=== PATIENT | male | born 1950 | race Caucasian/White ===

== ENCOUNTER 2016-07-15 08:19 | Outpatient (RCR) | payer MEDICARE, OTHER ==
--- OUTSIDE RECORDS SUMMARY | 2016-05-16 08:14 | XMS REPORT | Continuity of Care Document ---
Author Author [facility] Organization [facility] Address Unknown Phone Unavailable Care Team Providers Care Sales Representative [facility] Name Role Phone Unverified, Unverified PCP Unavailable Source Comments Some departments are not documenting in the electronic medical record. If you do not see the information that you expected, contact Release of Information in the Health Information Management department at [phone] for further assistance in locating additional records.[facility] Active Allergies and Adverse Reactions No Known Allergies Current Medications Prescription Sig. Disp. Refills Start End Date Status Date CALCIUM CARBONATE/VITAMIN Take 1 Cap by mouth Active D3 (CALCIUM + D PO) daily. vitamins, multiple cap Take 1 Cap by mouth Active daily. cyanocobalamin (VITAMIN Inject 1,000 mcg to Active B-12, RUBRAMIN) 1,000 area(s) as directed mcg/mL injection daily. MAGNESIUM CHLORIDE (MAG Take 99 mg by mouth Active 64 PO) daily. mexiletine (MEXITIL) 200 Take 200 mg by mouth Active mg capsule twice daily. testosterone(+) Apply 2.5 g to affected Active (ANDROGEL) 1 % (50 mg/5 area daily. g) transdermal gel Active Problems Problem Noted Date Testosterone deficiency 04/15/2013 Dizziness 10/12/2012 PVC's (premature ventricular contractions) 10/12/2012 Overview: 10/18/2012 - 24 Hour Holter: Sinus rhythm. Avg HR 64 bpm in spite of active day. Max HR 123bpm. No prologed pauses or significant bradycardia. Frequent monomorphic PVCs. ventricular bigeminy. PVC burden 13.3%, No symptoms reported. ETOH abuse 10/12/2012 Overview: Moderate Celiac sprue 10/12/2012 Chest pain 10/12/2012 Overview: 09/24/2012 - Stress Test: Fair exercise tolerance a total of 7 minutes, on standard Jose protocol, achieving 90% of maximum expected HR. Baseline SR with frequent PVCs and ventricular bigeminy, improved at increased HR. At the peak stress level, the patient did not have any PVCs. Started having PVCs during recovery. Back to ventricular bigeminy at the end of the stress test. Hypokinesia involving the anterior wall, anterior septum at the peak stress level compared to the resting images, suggestive of ischemia. ([facility]). 09/24/2012 - Cardiac Catheterization: 40 - 50% mid LAD stenosis, otherwise, nonobstructive disease in the coronary system. Normal LVEDP. The patient was borderline hypotensive. ([facility]) Bradycardia 10/12/2012 Overview: 09/23/2012 - ECHO: LVEF ~ 60%. LA size=4.0 cm. Normal LV size and systolic function. Mild MR. Mild TR. PAP 35 mmHg. ([facility]). Social History Tobacco Use Types Packs/Day Years Used Date Never Assessed Last Filed Vital Signs Vital Sign Reading Time Taken Blood Pressure 138/64 04/15/2013 2:26 PM LATCHER Pulse 53 04/15/2013 2:26 PM LATCHER Temperature - - Respiratory Rate - - Height 1.88 m (6' 2") 04/15/2013 2:26 PM LATCHER Weight 100.245 kg (221 lb) 04/15/2013 2:26 PM LATCHER Body Mass Index 28.36 04/15/2013 2:26 PM LATCHER Oxygen Saturation - - Plan of Care Health Maintenance Due Date Last Done Comments Physical (Comprehensive) 1958 Exam Pertussis Vaccine 1962 Tetanus Vaccine 02/26/1968 Colorectal Cancer 2001 Screening Shingles Vaccine 2011 Influenza Vaccine 01/07/2016 Results from Last 3 Months Not on file
[~2016-07-15 08:19] MED LIST: ASP81TEC PO; ASPI325T32 PO; ATOR10TA66 PO; CALC-656 PO; CALC-758 PO; CALC-78 PO; CARV3.122 PO; CYAN10007 PO; CYAN100088 PO; CYAN50003 PO; CYAN500T2 PO; DOCU100C37 PO; FLC1T PO; FOLI0.8T PO; HYDR-3820 PO; IBUP-2055 PO; LISI-556 PO; LISI5TAB14 PO; MAGN250T35 PO; MAGN400C PO; MAGNESIUM PO; MAGNESIUM/ZINC; METO25TA6 PO; MEXI200C PO; MULT1TAB69 PO; OMEG-160 PO; OMEG1CAP24 PO; POTA99TA17 PO; POTA99TA18 PO; SILD50TA PO; TESTOSTERONE CREAM TP; TRAM50TA2 PO; ZINC PO
== END 2016-07-15 09:50 | disposition home or self-care (01) ==
PROVIDERS: ATTEND Orthopaedic Surgery
DX: Z47.1 Aftercare following joint replacement surgery (principal); Z96.651 Presence of right artificial knee joint

== ENCOUNTER → 2016-12-19 | Outpatient (CLI) | payer MEDICARE, OTHER | LOC: CARD 08:45 | PROVIDERS: ATTEND Internal Medicine Cardiovascular Disease | DX: I25.10 Atherosclerotic heart disease of native coronary artery without angina pectoris (principal); I50.22 Chronic systolic (congestive) heart failure; I65.23 Occlusion and stenosis of bilateral carotid arteries; R06.02 Shortness of breath | CPT/HCPCS: 93306 ==

== ENCOUNTER → 2016-12-22 | Outpatient (CLI) | payer MEDICARE, OTHER ==
[~2016-12-22] MED LIST changes: +BARIUM SUSPENSION 105% (LIQUID POLIBAR PLUS) 240 ML/DOSE PO ONE; +BARIUM SUSPENSION 60% (LIQUID EZ PAQUE) 240 ML DOSE PO ONE
--- NOTE | 2016-12-22 14:03 | Diagnostic Imaging Report ---
Barium swallow. INDICATION: Difficulty swallowing. The preliminary view of the chest failed to show any sign of an acute abnormality. As noted on the prior chest exam of 04/12/2016, there are healed displaced fractures of several ribs on the right. A double-contrast exam was performed. The patient swallowed the contrast material without difficulty. There was no evidence for aspiration or penetration. There is no delay or obstruction of the passage of barium through the esophagus. There is a small sliding hiatal hernia, and there was mild reflux on one occasion. There is no evidence for esophagitis however. A cursory examination of the stomach shows that the stomach has good distensibility and motility. There is no mass or ulceration noted. The duodenal bulb and proximal small bowel were generally unremarkable. IMPRESSION: 1. The esophagus shows good distensibility and motility. 2. There is a small sliding hiatal hernia, and there was mild reflux. There is no sign of esophagitis. 3. There is no abnormality of the visualized stomach or proximal small bowel. Dictated by: Dictated on workstation # [id number]
== END ==
LOC: RAD 09:20
PROVIDERS: ATTEND Otolaryngology Otolaryngology/Facial Plastic Surgery
DX: K44.9 Diaphragmatic hernia without obstruction or gangrene (principal); R13.10 Dysphagia, unspecified; K21.9 Gastro-esophageal reflux disease without esophagitis
CPT/HCPCS: 74220

== ENCOUNTER → 2018-03-15 | Outpatient (CLI) | payer MEDICARE, OTHER ==
[~2018-03-15] MED LIST changes: -BARIUM SUSPENSION 105% (LIQUID POLIBAR PLUS) 240 ML/DOSE PO ONE; -BARIUM SUSPENSION 60% (LIQUID EZ PAQUE) 240 ML DOSE PO ONE
--- NOTE | 2018-03-15 10:24 | Diagnostic Imaging Report ---
PROCEDURE: MRI left joint lower extremity without contrast. TECHNIQUE: Multiplanar, multisequence non contrast-enhanced MRI of the left lower extremity was accomplished. INDICATION: Knee pain. There are no previous studies available for comparison. FINDINGS: On the sagittal proton dense series, both the anterior cruciate ligament and posterior cruciate ligament are indistinct. The anterior cruciate ligament may be at least partially if not completely torn. I suspect posterior cruciate ligament is partially torn. Furthermore, there is a broad tear involving the midportion and the posterior horn of the medial meniscus. There also appears to be a tear of the anterior horn of the lateral meniscus. The quadriceps and infrapatellar tendons are intact. There is mild edema/inflammation about both the medial collateral and fibular collateral ligaments and I suspect that the medial collateral ligament is partially torn as well. The fibular collateral ligament, the biceps femoris tendon and the iliotibial band are intact. There is no sign of a tear of either the medial or lateral retinaculum. There is fairly severe degenerative disease involving the articular surface of the medial femoral condyle and there are prominent areas of abnormal signal in the opposing surfaces of the medial femoral condyle and medial proximal tibia on the coronal STIR series. These findings are probably due to bone edema from repetitive trauma. The lateral compartment of knee joint shows only moderate degenerative disease and the patellofemoral space is fairly well-maintained. There is a small joint effusion present. There is no sign of a Liu's cyst. IMPRESSION: 1. The indistinct appearance of the anterior and posterior cruciate ligaments would indicate that they are at least partially torn. The anterior cruciate ligament may be completely torn. There also appears to be a partial tear of the medial collateral ligament. 2. There is a broad tear involving the midportion and posterior horn of the medial meniscus and the anterior horn of lateral meniscus is also felt to be torn. 3. There are advanced degenerative changes involving the medial compartment of the knee joint. Most likely this is related to the injury to the medial meniscus. 4. There is a small joint effusion present. Dictated by: Dictated on workstation # [id number]
== END ==
LOC: RAD 08:23
PROVIDERS: ATTEND Orthopaedic Surgery
DX: M23.222 Derangement of posterior horn of medial meniscus due to old tear or injury, left knee (principal); M17.12 Unilateral primary osteoarthritis, left knee
CPT/HCPCS: 73721

== ENCOUNTER → 2019-03-11 | Outpatient (CLI) | payer MEDICARE, OTHER ==
[~2019-03-11] VITALS: Ht 188 cm; Wt 95.0 kg
[~2019-03-11] MED LIST changes: +CATHETER FLUSH 10 ML SYR IV PRN; +REGADENOSON 0.4 MG/5 ML SYR (LEXISCAN) IV ONE
--- NOTE | 2019-03-11 14:14 | STRESS TEST ---
DATE OF SERVICE: 03/11/2019 LEXISCAN MYOVIEW STRESS TEST REPORT REFERRING PHYSICIAN: Pamela Lezama DO Baseline heart rate is 59, baseline blood pressure 197/92. Baseline EKG is sinus rhythm with no ischemic changes. In summary, the patient was injected with 10.68 mCi of technetium-99 Myoview and the resting images were obtained. Then, the patient received 0.4 mg of Lexiscan followed by 32.0 mCi of technetium-99 Myoview. Throughout the test, there were no EKG changes. The resting and stress images were reviewed and compared in the short axis, horizontal long axis, and vertical long axis views. Review of the images showed diaphragmatic attenuation with decreased uptake involving the mid to apical inferior wall and inferoseptum with no significant reversibility. SSS is 6, SDS 2, TID value 0.92. On the gated images, the left ventricle appeared to be in normal size with hypokinesia at the inferior wall. Calculated ejection fraction 43%. CONCLUSION: 1. The patient tolerated Lexiscan well. 2. Diaphragmatic attenuation with fixed defect involving the inferior wall. 3. Normal left ventricular size with mild hypokinesia at the inferior wall and inferolateral wall with calculated ejection fraction 43%. Job ID: [id number] DocumentID: [id number] Dictated Date: 03/11/2019 12:00:33 Flange Machine Operator Date: 03/11/2019 14:13:28 Dictated By: VIVIAN LAZAR MD
== END ==
LOC: CARD 08:18
PROVIDERS: ATTEND Physician Assistant
DX: I35.1 Nonrheumatic aortic (valve) insufficiency (principal); I51.7 Cardiomegaly; I51.89 Other ill-defined heart diseases; I25.10 Atherosclerotic heart disease of native coronary artery without angina pectoris; I50.9 Heart failure, unspecified; I65.29 Occlusion and stenosis of unspecified carotid artery; I49.3 Ventricular premature depolarization
CPT/HCPCS: 78452; 93017; 93306

== ENCOUNTER → 2020-08-26 | Outpatient (CLI) | payer MEDICARE, OTHER ==
[~2020-08-26] VITALS: Ht 190 cm; Wt 93.0 kg
[~2020-08-26] MED LIST changes: +ACHYD1T PO; -HYDR-3820 PO; -IBUP-2055 PO; +IBUP-2473 PO; -LISI-556 PO; +LISI-729 PO; +MULT-567 PO; -MULT1TAB69 PO; -REGADENOSON 0.4 MG/5 ML SYR (LEXISCAN) IV ONE; -TRAM50TA2 PO; +TRM50T PO
[2020-08-26 13:24] VITALS: BP 123/89
[2020-08-26 13:28] VITALS: BP 223/93
[2020-08-26 13:32] VITALS: BP 201/94
--- NOTE | 2020-08-26 15:31 | Cardiology Stress Test Report ---
Stress Test Report Date of Procedure/Referring: Date of Procedure: Aug 26, 2020 PCP Vivian Monteiro MD Admitting Physician Pamela Lezama DO Indications: HTN Baseline Heart Rate: 61 Baseline Blood Pressure: Blood Pressure Systolic: 201 Blood Pressure Diastolic: 94 Vital Signs Date Time Temp Pulse Resp B/P (MAP) Pulse Ox O2 Delivery O2 Flow Rate FiO2 08/26/20 13:24 111 123/89 (100) 08/26/20 13:28 24 Room Air Baseline Vital Signs Vital Signs Date Time Temp Pulse Resp B/P (MAP) Pulse Ox O2 Delivery O2 Flow Rate FiO2 08/26/20 13:24 111 123/89 (100) 08/26/20 13:28 24 Room Air Baseline EKG: Baseline EKG: NSR Summary: After explaining the procedure and details to the patient, he signed the consent and was brought to the stress nuclear laboratory. Patient exercised on standard Jose protocol, EKG, heart rate and blood pressure were monitored continuously, resting and stress doses of radio tracer were injected, imaging was acquired and reviewed in the short axis, horizontal long axis and vertical long axis views Patient was able to exercise for a total of 4:20 minutes on Jose protocol, METs 6.2 Maximum heart rate 141 Maximum blood pressure 229/101 Stress EKG, Minimal nondiagnostic changes Recovery EKG, Return to baseline TID: 0.91 SSS: 5 SDS: 3 EF: 38 Conclusion: 1. Fair exercise tolerance for a total of 4 minutes 20 seconds on standard Jose protocol total of 6.2 METS achieving 93% of maximal expected heart rate 2. Appropriate heart rate response to exercise with frequent PVCs noted during stress test and early in recovery 3. Nondiagnostic EKG changes with exercise return to baseline during recovery 4. Severe hypertensive response to exercise with peak blood pressure 228/101 return to baseline during recovery 5. Diaphragmatic attenuation with decreased uptake involving the mid to apical inferior wall with mild reversibility 6. Normal left ventricular size with diffuse left ventricular hypokinesia, EF 38% VIVIAN MONTEIRO MD Aug 26, 2020 15:31
== END ==
LOC: CARD 11:00
PROVIDERS: ATTEND Internal Medicine Cardiovascular Disease
DX: I11.0 Hypertensive heart disease with heart failure (principal); I50.22 Chronic systolic (congestive) heart failure; I08.0 Rheumatic disorders of both mitral and aortic valves
CPT/HCPCS: 78452; 93017; 93306; A9502

== ENCOUNTER 2020-09-02 09:00 | Day surgery (SDC) | payer MEDICARE, OTHER ==
[~2020-09-02] VITALS: Ht 190 cm; Wt 93.0 kg
[2020-09-02] VITALS (8 sets, daily range): BP systolic 134–163; BP diastolic 75–99
[2020-09-02 07:23] LABS: HEMOGLOBIN 13.6 g/dL (13.3-17.7); MEAN PLATELET VOLUME 10.1 fL (9.0-12.2); WHITE BLOOD COUNT 6.5 10^3/uL (4.3-11.0)
[2020-09-02 07:42] LABS: ALBUMIN 4.1 GM/DL (3.2-4.5); BILIRUBIN,TOTAL 0.9 MG/DL (0.1-1.0); CALCIUM 8.6 MG/DL (8.5-10.1); CREATININE SERUM 1.22 MG/DL (0.60-1.30); POTASSIUM 4.3 MMOL/L (3.6-5.0); TOTAL PROTEIN 6.9 GM/DL (6.4-8.2)
--- NOTE | 2020-09-02 08:04 | Diagnostic Imaging Report ---
INDICATION: Chest pain, short of breath, hypertension. Upright portable chest shows normal heart size and vascularity. The lungs are clear. There is no effusion or pneumothorax. There are multiple old healed rib fractures present on the right. IMPRESSION: No acute abnormality is seen with no change from 04/12/2016. Dictated by: Dictated on workstation # [id number]
[2020-09-02 08:06] LABS: PROTHROMBIN TIME PATIENT 13.5 SEC (12.2-14.7)
[~2020-09-02 09:00] MED LIST changes: +ACET-575 PO; +ASPI-1238 PO; -CATHETER FLUSH 10 ML SYR IV PRN; +CYAN-23 PO; +FAMO20TA3 PO; +HEParin (CATH LAB) 2,000 ML IV ONE; +LIDOCAINE 1% INJ 20 ML 20 ML VIAL ONE; +LISI20TA26 PO; +MELO15TA39 PO; +NF-MEXI200 PO; +NS IV 1000 ML 1,000 ML IV SCH; +NS IV 1000 ML 1,000 ML ONE
[2020-09-02] MEDS ORDERED: VERAPAMIL 5 MG/2 ML (CALAN) VIAL IV ONE (10:27)
[2020-09-02] MEDS ORDERED: fentaNYL INJ 100 MCG/2 ML AMP ONE (10:27)
[2020-09-02] MEDS ORDERED: HEParin 1000 UNIT/ML (10ML VIAL) FOR BOLUS ONE (10:27)
[2020-09-02] MEDS ORDERED: MIDAZOLAM 5 MG/5 ML (VERSED) VIAL ONE (10:27)
[2020-09-02] MEDS ORDERED: NITRO DRIP 25000 MCG/D5W 250 ML IV ONE (10:27)
--- NOTE | 2020-09-02 10:52 | Conscious Sedation/ASA ---
Conscious Sedation Pre-Proced Time 10:51 ASA Score 3 For ASA 3 and 4: Consider anesthesia and medical clearance. Also, for patients with a history of failed moderate sedation consider anesthesia. Airway Lungs Heart ASA score ASA 1: a normal healthy patient ASA 2: a patient with a mild systemic disease (mid diabetes, controlled hypertension, obesity x ASA 3: a patient with a severe systemic disease that limits activity (angina, COPD, prior Myocardial infarction) ASA 4: a patient with an incapacitating disease that is a constant threat to life (CHF, renal failure) ASA 5: a moribund patient not expected to survive 24 hrs. (ruptured aneurysm) ASA 6: a declared brain- patient whose organs are being harvested. For emergent operations, add the letter E after the classification Mallampati Classification Grade 3 Sedation Plan Analgesia, Amnesia, Plan communicated to team members, Discussed options with patient/fam, Discussed risks with patient/fam The patient is an appropriate candidate to undergo the planned procedure, sedation, and anesthesia. The patient immediately re-assessed prior to indication. VIVIAN LAZAR MD Sep 02, 2020 10:52
[2020-09-02] MEDS ORDERED: NS IV 1000 ML 1,000 ML IV SCH (11:30)
--- NOTE | 2020-09-02 11:30 | Discharge Inst-Post CATH ---
Discharge Inst-CATH/EP Problems Reviewed?: Yes Post Cardiac Cath/EP D/C Inst Follow Up/Plan Appointment with Dr. Monteiro's office in 4 weeks <b>CARDIAC CATH/EP PROCEDURE DISCHARGE INSTRUCTIONS</b> ACTIVITY * Go Home directly and rest. * Limit activity of the leg (or wrist if it was used) for 7 days including aerobics, swimming, jogging, bicycling, etc. * Restrict stair-climbing for 7 days if possible, if not, climb up with your non-cath leg, then bring together on the same step. * Avoid lifting, pushing, pulling or excessive movement of the affected extremity for 7 days. * Customary sexual activity may be resumed after 2 days-use caution not to use a position that strains or causes pain to the affected extremity. * No driving for 24 hours. * NO SMOKING. * Avoid straining for bowel movements for 7 days. * Gentle walking on level ground is allowed. * Returning to work will depend on the type of procedure and the results. Your doctor will discuss this with you. CALL YOUR DOCTOR FOR ANY OF THE FOLLOWING: *If bleeding from the puncture site occurs- Apply gentle pressure to site with clean cloth and call your doctor or EMS. * If a knot or lump forms under the skin, increases in size, or causes pain. * If bruising appears to be worsening or moving further down your leg instead of disappearing. * Temperature above 101 F. CARE OF YOUR GROIN INCISION; * Bruising or purple discoloration of the skin near the puncture site is common. * You may shower only, no bathtub bathing for 5 days. Be careful to avoid slipping as your leg may feel stiff. * If a closure device was used on your femoral artery, please see the attached guide regarding care of the device and your leg. * Leave dressing on FOR 24 hours. CARE OF YOUR WRIST INCISION; * Bruising or purple discoloration of the skin near the puncture site is common. * You may shower. * DO NOT submerge wrist. * Leave dressing on FOR 24 hours. VIVIAN MONTEIRO MD Sep 02, 2020 11:30 am
--- NOTE | 2020-09-02 11:34 | Cardiac Cath Report ---
Cardiac Cath Report Physician (s)/Carton Maker (s) Physician VIVIAN LAZAR MD Pre-Procedure Diagnosis Pre-Procedure Diagnosis: Coronary artery disease Post-Procedure Note Procedure Start Date: Sep 02, 2020 Name of Procedure: Left heart catheterization Left ventriculogram Abdominal aortogram Findings/Procedure Note PROCEDURE NOTE: 70 years old gentleman with history of abnormal stress test, becoming more symptomatic with increasing shortness of breath on exertion, patient has baseline abnormal stress test, we decided to proceed with cardiac catheterization evaluating his coronary anatomy. After explaining the procedure to the patient, all pros and cons were explained, all questions were answered. The patient signed the consent and then he was placed on the cardiac catheterization laboratory. Groin was prepped SL fashion local anesthesia was used. Sheath placed in the left radial artery, [place] catheter was advanced to the left ventricular cavity, left ventriculogram was done, pullback LV to aorta was done, pressure was measured, intubated the right and left coronary system and angiogram was done then the catheter was removed and a pigtail catheter was placed in the abdominal aorta just above the renal artery and angiogram was done. At the end of the procedure the sheath was removed. Closure device FINDINGS: Hemodynamics LV 148/8, end-diastolic pressure of 8 Aorta 144/69 mean of 99 ANATOMY: Left Main is free of obstructive disease Left Anterior Descending is smaller artery with mild disease nonobstructive disease Left Circumflex is small to moderate in size with mild disease at the ostial obtuse marginal, nonobstructive disease Right Coronory Artery is dominant artery with mild disease nonobstructive disease LV Gram was done showing normal left ventricular size and systolic function, ejection fraction 60% Aorta evaluation done with abdominal aortogram showing normal abdominal aorta, normal SMA and NIMISHA, both renal arteries were visualized and appeared normal CONCLUSION: 1. Mild coronary artery disease nonobstructive disease 2. Normal left ventricular size and systolic function, ejection fraction 60% 3. Normal abdominal aorta and normal renal arteries DISCUSSION AND RECOMMENDATION: Mr. Mcclelland has been having increasing shortness of breath, cardiac work-up has been negative with a cardiac catheterization, normal left ventricular systolic and diastolic function, normal renal artery, recommend referral for pulmonary evaluation Anesthesia Type: Conscious Sedation Estimated blood loss (mL): 10 ml Contrast Amount: 80 ml Total Radiation Dose: 660 mGy Post-Procedure Diagnosis Post-operative diagnosis: Shortness of breath Coronary artery disease Hypertension Hyperlipidemia VIVIAN LAZAR MD Sep 02, 2020 11:34 am
== END 2020-09-02 14:00 ==
LOC: CATH 09:00 → SDC 11:37 → CATH 14:00
PROVIDERS: ATTEND Internal Medicine Cardiovascular Disease
DX: I25.10 Atherosclerotic heart disease of native coronary artery without angina pectoris (principal); I10 Essential (primary) hypertension; E78.5 Hyperlipidemia, unspecified; I11.0 Hypertensive heart disease with heart failure; I50.22 Chronic systolic (congestive) heart failure; I65.23 Occlusion and stenosis of bilateral carotid arteries; Z79.82 Long term (current) use of aspirin; Z79.899 Other long term (current) drug therapy; Z87.891 Personal history of nicotine dependence
CPT/HCPCS: 71045; 75625; 80053; 80061; 85027; 85610; 85730; 87081; 93458; C1894; 36415

== ENCOUNTER → 2020-10-06 | Outpatient (CLI) | payer MEDICARE, OTHER ==
[~2020-10-06] MED LIST changes: -HEParin (CATH LAB) 2,000 ML IV ONE; -LIDOCAINE 1% INJ 20 ML 20 ML VIAL ONE; -NS IV 1000 ML 1,000 ML IV SCH; -NS IV 1000 ML 1,000 ML ONE; +RT-ALBUTEROL SULF 2.5 MG/3 ML PRE-MIX VIAL INH ONE
== END ==
LOC: RT 07:36
PROVIDERS: ATTEND Internal Medicine
DX: R06.00 Dyspnea, unspecified (principal)
CPT/HCPCS: 94060; 94726; 94729

== ENCOUNTER 2021-04-23 05:27 | Outpatient (RCR) | payer MEDICARE, OTHER ==
[~2021-04-23] VITALS: Ht 188 cm; Wt 95.4 kg
[~2021-04-23 05:27] MED LIST changes: -LISI-729 PO; +LISI5TAB20 PO; +MONT-40 PO; +MULT-593 PO; -RT-ALBUTEROL SULF 2.5 MG/3 ML PRE-MIX VIAL INH ONE; +TADA5TAB4 PO
== END 2021-04-23 11:49 | disposition home or self-care (01) ==
LOC: PREOP 05:27
PROVIDERS: ATTEND Surgery
DX: Z01.812 Encounter for preprocedural laboratory examination (principal); Z12.11 Encounter for screening for malignant neoplasm of colon; R13.10 Dysphagia, unspecified; Z20.822 Contact with and (suspected) exposure to COVID-19
CPT/HCPCS: 87635

== ENCOUNTER 2021-04-27 11:27 | Day surgery (SDC) | payer MEDICARE, OTHER ==
[~2021-04-27] VITALS: Ht 188 cm; Wt 95.4 kg
[2021-04-27] VITALS (7 sets, daily range): BP systolic 129–136; BP diastolic 63–90
[2021-04-27] MEDS ORDERED: LACTATED RINGERS 1,000 ML IV ONE (11:36)
[2021-04-27] MEDS ORDERED: LACTATED RINGERS 1,000 ML IV STA (11:39)
[2021-04-27] MEDS ORDERED: HURRICAINE EXT TUBE (BENZOCAINE) XX PRN (11:45)
--- NOTE | 2021-04-27 11:54 | Progress Note-Pre Operative ---
Pre-Operative Progress Note H&P Reviewed The H&P was reviewed, patient examined and no changes noted. Date Seen by Provider: Apr 27, 2021 Time Seen by Provider: 11:54 Date H&P Reviewed: Apr 27, 2021 Time H&P Reviewed: 11:54 Pre-Operative Diagnosis: dysphagia, epigastric pain, screening colonoscopy LORENA RINCON DO Apr 27, 2021 11:54
[2021-04-27] MEDS ORDERED: ESMOLOL 100 MG/10 ML (BREVIBLOC) VIAL ONE (12:50)
[2021-04-27] MEDS ORDERED: MIDAZOLAM 2 MG/2 ML (VERSED) VIAL ONE (13:00)
[2021-04-27] MEDS ORDERED: PROPOFOL INJECTION 50 ML IV ONE ×2 (13:00→13:22)
--- NOTE | 2021-04-27 13:40 | Progress Note-Post Operative ---
Post-Operative Progess Note Surgeon (s)/Air Intelligence Officer (s) Surgeon LORENA RINCON DO Air Intelligence Officer: na Pre-Operative Diagnosis dysphagia, epigastric pain, screening colonoscopy Post-Operative Diagnosis gastritis, hiatal hernia, erosive esophagitis, colon polyp Procedure & Operative Findings Date of Procedure 04/27/21 Procedure Performed/Findings egd c biopsies, colonosocpy c hot bx polypectomy x 4 snare polypectomy x 1 Anesthesia Type per tearoom host Estimated Blood Loss Estimated blood loss (mL): none Specimens/Packing Specimens Removed antrum, ge, colon polyps LORENA RINCON DO Apr 27, 2021 13:40
[2021-04-27] MEDS ORDERED: PANT40TA2 PO (13:42)
[2021-04-27] MEDS ORDERED: SUCR1TAB36 PO (13:44)
--- NOTE | 2021-04-27 13:45 | Discharge Inst-Simple/Standard ---
Discharge Inst-Standard Patient Instructions/Follow Up Plan of Care/Instructions/FU: Follow up Estrada 2 weeks. Activity as Tolerated: Yes Discharge Diet: Other Diet (High Fiber Diet) NEVIN WALDROP FRUIT WORKER Apr 27, 2021 13:45
--- NOTE | 2021-04-27 14:54 | Anesthesia-General Post-Op ---
MAC Patient Condition Mental Status/LOC: Same as Preop Cardiovascular: Satisfactory Nausea/Vomiting: Absent Respiratory: Satisfactory Pain: Controlled Complications: Absent Post Op Complications Complications None Follow Up Care/Instructions Patient Instructions None needed. Anesthesiology Discharge Order Discharge Order Patient is doing well, no complaints, stable vital signs, no apparent adverse anesthesia problems. No complications reported per nursing. JOSE HERNANDEZ CRNA Apr 27, 2021 14:54
--- NOTE | 2021-04-27 18:43 | OPERATIVE REPORT ---
DATE OF SERVICE: 04/27/2021 PREOPERATIVE DIAGNOSES: Dysphagia, epigastric abdominal pain, screening colonoscopy. POSTOPERATIVE DIAGNOSES: Gastritis, hiatal hernia, erosive esophagitis, colon polyps. PROCEDURE: EGD with biopsies, colonoscopy with hot biopsy polypectomy x4 and snare polypectomy x1. SURGEON: Lorena Estrada DO ANESTHESIA: Per COMMUNITY ASSISTANT. ESTIMATED BLOOD LOSS: None. COMPLICATIONS: None. INDICATIONS: The patient is a 71-year-old male having dysphagia symptoms and epigastric abdominal pain. He is also needing screening colonoscopy. He understands risks and benefits of procedure and wishes to proceed. Consent was signed in the chart. DESCRIPTION OF PROCEDURE: The patient was taken to endoscopy suite, placed in left lateral recumbent position. Timeout was performed. Scope was inserted in mouth, down the esophagus into the stomach and duodenum. There were no polyps, masses or ulcerations within the duodenum. Scope was slowly retracted back into the stomach where it was further insufflated. Biopsy of the antrum was obtained. Changes of gastritis present. Scope was retroflexed noting a small hiatal hernia. Scope was then returned to its normal position, slowly withdrawn to distal esophagus, changes of erosive esophagitis were present. Biopsy of the distal esophagus at the GE junction were obtained. Scope was then slowly retracted back until completely removed. Digital rectal exam was performed. There were no palpable polyps, masses or ulcerations. Scope was inserted in the rectum and advanced all the way to the cecum with minimal difficulty. Prep was adequate. Scope was then slowly retracted back. No polyps, masses or ulcerations in the cecum, ascending or transverse colon. In the descending colon, there were three polyps present, which hot biopsy polypectomies were performed. Scope was then continuously retracted back into the sigmoid colon, another polyp was present, which hot biopsy polypectomy was performed. There was some diverticulosis present throughout the sigmoid colon. Scope was then continuously retracted back into the rectum with another polyp was present, which snare polypectomy was performed. Scope was retroflexed noting no other pathology. Scope was returned to its normal position, slowly withdrawn until completely removed. The patient tolerated procedure well without any complications. He was taken to recovery room in stable condition. RECOMMENDATIONS: The patient will need repeat colonoscopy in 3 to 5 years depending on pathology. We would recommend repeat EGD in 8 weeks for evaluation of the risks of esophagitis and possibly rebiopsy. The patient will be started on Protonix 40 mg daily and Carafate 1 gram four times a day. We will see him in 2 weeks to see how his symptoms and pathology are doing. Job ID: [id number] DocumentID: [id number] Dictated Date: 04/27/2021 13:44:05 Joy Operator Helper Date: 04/27/2021 18:41:30 Dictated By: LORENA ESTRADA DO
== END 2021-04-27 14:35 | disposition home or self-care (01) ==
LOC: ENDO 11:27
PROVIDERS: ATTEND Surgery
DX: Z12.11 Encounter for screening for malignant neoplasm of colon (principal); D12.4 Benign neoplasm of descending colon; D12.5 Benign neoplasm of sigmoid colon; D12.8 Benign neoplasm of rectum; K29.70 Gastritis, unspecified, without bleeding; K44.9 Diaphragmatic hernia without obstruction or gangrene; K22.10 Ulcer of esophagus without bleeding; K21.00 Gastro-esophageal reflux disease with esophagitis, without bleeding; I10 Essential (primary) hypertension; I25.10 Atherosclerotic heart disease of native coronary artery without angina pectoris; J44.9 Chronic obstructive pulmonary disease, unspecified; E78.00 Pure hypercholesterolemia, unspecified; Z79.899 Other long term (current) drug therapy; Z79.82 Long term (current) use of aspirin; Z87.891 Personal history of nicotine dependence

== ENCOUNTER 2021-07-19 05:33 | Outpatient (CLI) | payer MEDICARE, OTHER ==
[~2021-07-19] VITALS: Ht 188 cm; Wt 95.3 kg
[~2021-07-19 05:33] MED LIST changes: +PANT40TA2 PO; +SUCR1TAB36 PO
[2021-07-21] MEDS ORDERED: FLUT1DIS26 IH (11:08)
[2021-07-21] MEDS ORDERED: ALBU0.63 IH (11:08)
== END 2021-07-21 13:37 | disposition home or self-care (01) ==
LOC: PREOP 05:33
PROVIDERS: ATTEND Surgery
DX: Z01.818 Encounter for other preprocedural examination (principal)

== ENCOUNTER 2021-07-27 07:40 | Day surgery (SDC) | payer MEDICARE, OTHER ==
[~2021-07-27] VITALS: Ht 188 cm; Wt 95.3 kg
[~2021-07-27 07:40] MED LIST changes: +ALBU0.63 IH; +FLUT1DIS26 IH
[2021-07-27] MEDS ORDERED: LACTATED RINGERS 1,000 ML IV STA (07:49)
[2021-07-27] MEDS ORDERED: LACTATED RINGERS 1,000 ML IV ONE (07:54)
[2021-07-27 08:00] VITALS: BP 162/91
[2021-07-27] MEDS ORDERED: HURRICAINE EXT TUBE (BENZOCAINE) XX PRN (08:00)
[2021-07-27] MEDS ORDERED: proPOfol 200 MG/20 ML (DIPRIVAN) VIAL IV ONE (08:32)
[2021-07-27 08:45] VITALS: BP 154/80
--- NOTE | 2021-07-27 08:46 | Anesthesia-General Post-Op ---
MAC Patient Condition Mental Status/LOC: Same as Preop Cardiovascular: Satisfactory Nausea/Vomiting: Absent Respiratory: Satisfactory Pain: Controlled Complications: Absent Post Op Complications Complications None Follow Up Care/Instructions Patient Instructions None needed. Anesthesiology Discharge Order Discharge Order Patient is doing well, no complaints, stable vital signs, no apparent adverse anesthesia problems. No complications reported per nursing. MICHELLE JURADO CRNA Jul 27, 2021 08:46
[2021-07-27 08:50] VITALS: BP 140/86
--- NOTE | 2021-07-27 08:51 | Progress Note-Post Operative ---
Post-Operative Progess Note Surgeon (s)/Clinical Informatics Manager (s) Surgeon LORENA RINCON DO Clinical Informatics Manager: na Pre-Operative Diagnosis hx erosive esophagitis Post-Operative Diagnosis gastritis, reflux esophagitis Procedure & Operative Findings Date of Procedure 07/27/21 Procedure Performed/Findings egd c biopsies Anesthesia Type per chummer Estimated Blood Loss Estimated blood loss (mL): none Specimens/Packing Specimens Removed antrum, ge LORENA RINCON DO Jul 27, 2021 08:51
--- NOTE | 2021-07-27 08:52 | Discharge Inst-Simple/Standard ---
Discharge Inst-Standard Discharge Medications New, Converted or Re-Newed RX: RX on Chart Patient Instructions/Follow Up Plan of Care/Instructions/FU: 2 weeks Sean Activity as Tolerated: Yes Discharge Diet: Regular Diet LORENA RINCON DO Jul 27, 2021 08:52
[2021-07-27 09:00] VITALS: BP 146/79
[2021-07-27 09:25] VITALS: BP 162/98
--- NOTE | 2021-07-27 12:32 | OPERATIVE REPORT ---
DATE OF SERVICE: 07/27/2021 PREOPERATIVE DIAGNOSIS: History of erosive esophagitis. POSTOPERATIVE DIAGNOSES: Gastritis, reflux esophagitis. PROCEDURE: EGD with biopsies. SURGEON: Lorena Estrada DO ANESTHESIA: Per [employer]. ESTIMATED BLOOD LOSS: None. COMPLICATIONS: None. SPECIMENS: Antrum and GE junction. INDICATIONS: The patient is a 71-year-old male with history of erosive esophagitis. He understands risks and benefits for evaluation and wishes to proceed. Consent was signed in the chart. DESCRIPTION OF PROCEDURE: The patient was taken to the endoscopy suite, placed in left lateral recumbent position. Timeout was performed. Scope was inserted in mouth, down the esophagus, stomach and into the duodenum without difficulty. No polyps, masses or ulcerations within the duodenum. Scope was slowly retracted back into the stomach where it was further insufflated. Some erythematous changes throughout the antrum consistent with gastritis. Biopsy of the antrum was obtained. Scope was retroflexed noting no other pathology. Scope was returned to its normal position, slowly withdrawn until completely into the distal esophagus, changes of reflux esophagitis present. Biopsy was obtained. Scope was slowly retracted back until completely removed. The patient tolerated the procedure well without any complications. He was taken to recovery room in stable condition. The patient is to continue on current medications. We will continue on ulcer and gastritis diet. The patient will follow up in 2 weeks. Job ID: [id number] DocumentID: [id number] Dictated Date: 07/27/2021 08:54:41 Ob Gyn Physician Assistant Date: 07/27/2021 12:30:38 Dictated By: LORENA ESTRADA DO
== END 2021-07-27 09:26 | disposition home or self-care (01) ==
LOC: ENDO 07:40
PROVIDERS: ATTEND Surgery
DX: K21.00 Gastro-esophageal reflux disease with esophagitis, without bleeding (principal); K29.70 Gastritis, unspecified, without bleeding; Z87.891 Personal history of nicotine dependence

== ENCOUNTER → 2023-03-21 | Outpatient (CLI) | payer MEDICARE ==
[~2023-03-21] MED LIST changes: -CYAN50003 PO; +CYAN50007 PO; +FAMO-356 PO; -FAMO20TA3 PO
== END ==
LOC: WOUNDCARE 10:17
PROVIDERS: ATTEND Family Medicine
DX: T63.331A Toxic effect of venom of brown recluse spider, accidental (unintentional), initial encounter (principal); I96 Gangrene, not elsewhere classified; L03.312 Cellulitis of back [any part except buttock and flank]
CPT/HCPCS: 97597; A6212; A6260; G0463

== ENCOUNTER → 2023-03-27 | Outpatient (CLI) | payer MEDICARE | LOC: WOUNDCARE 08:06 | PROVIDERS: ATTEND Family Medicine | DX: T63.331A Toxic effect of venom of brown recluse spider, accidental (unintentional), initial encounter (principal); I96 Gangrene, not elsewhere classified; L03.312 Cellulitis of back [any part except buttock and flank] | CPT/HCPCS: 99213 ==

== ENCOUNTER → 2023-04-10 | Outpatient (CLI) | payer MEDICARE | LOC: WOUNDCARE 08:25 | PROVIDERS: ATTEND Family Medicine | DX: I96 Gangrene, not elsewhere classified (principal); T63.331A Toxic effect of venom of brown recluse spider, accidental (unintentional), initial encounter | CPT/HCPCS: 11042; A6212; G0463 ==